=== PATIENT | female | born 1945 ===

== ENCOUNTER 2016-10-18 14:34 | Emergency (ER) | payer MEDICARE, MEDICAID ==
[2016-10-18 14:42] VITALS: BP 138/77; PULSE 90; RESP 20; TEMP 97.8; O2SAT 98
--- NOTE | 2016-10-18 15:18 | ED PDOC ---
HPI: CCC, URI, Sore Throat Time Seen by Provider: 10/18/16 15:00 Chief Complaint (Nursing): ENT Problem Chief Complaint (Provider): Ear Pain History Per: Patient, Family History/Exam Limitations: no limitations Have you had recent travel within the past 21 days to any of the following countries: [place], [place], [place] or [place]?: No Onset/Duration Of Symptoms: Days (x3 weeks) Current Symptoms Are (Timing): Still Present Location Of Pain: Ear(s) Associated Symptoms: Neck Pain (left side), Other (dizziness and ear pain (left) ). denies: Fever, Chills, Sinus Drainage Ear Symptoms: Left: Ear Pain, Decreased Hearing Severity: Moderate Additional Complaint(s): Dalila Bob is a 71 year old female, with a past medical history of cerebrovascular accidents, who presents to the emergency department with complaints of ear pain, that she has been experiencing for three weeks. Patient reportedly states a painful ringing sensation in her left ear for the past 3 days, inclusive of diminished hearing. Associated dizziness and left sided swelling of her neck are also present. Denies sinus drainage, fever, and chills. Patient has been taking Nasonex; however, it only provides mild relief. Of note, the patient did not take allergy pills prior to arrival due to a past medical history of asthma. Her PMD diagnosed her with an ear infection last week. PMD: Angel Luis Granger Past Medical History Reviewed: Historical Data, Nursing Documentation, Vital Signs Vital Signs: Last Vital Signs Temp 97.8 F 10/18/16 14:38 Pulse 90 10/18/16 14:38 Resp 20 10/18/16 14:38 BP 138/77 10/18/16 14:38 Pulse Ox 98 10/18/16 16:15 - Medical History PMH: Asthma, CVA - Family History Family History: States: No Known Family Hx - Home Medications Home Medications: Ambulatory Orders Medication Instructions Recorded Loratadine [Claritin] 10 mg PO DAILY #14 tab 10/18/16 - Allergies Allergies/Adverse Reactions: Allergies Allergy/AdvReac Type Severity Reaction Status Date / Time codeine Allergy SWELLING Verified 10/18/16 14:38 shellfish derived Allergy SHORTNESS Verified 10/18/16 14:38 OF BREATH Review of Systems ROS Statement: Except As Marked, All Systems Reviewed And Found Negative Constitutional: Negative for: Fever, Chills ENT: Positive for: Ear Pain (left tympanic membrane). Negative for: Ear Discharge, Nose Discharge Musculoskeletal: Positive for: Neck Pain (left sided pain inclusive of mild swelling) Skin: Negative for: Rash Neurological: Positive for: Dizziness. Negative for: Weakness, Numbness Physical Exam - Reviewed Nursing Documentation Reviewed: Yes Vital Signs Reviewed: Yes - Physical Exam Appears: Positive for: Non-toxic, No Acute Distress Head Exam: Positive for: ATRAUMATIC, NORMAL INSPECTION, NORMOCEPHALIC Skin: Positive for: Normal Color, Dry Eye Exam: Positive for: Normal appearance, PERRL ENT: Positive for: Normal ENT Inspection, TM Is/Are (left tm erythema, non- reflective to light), Hearing Is (decreased (left tm)). Negative for: Sinus Pain/Drainage Neck: Positive for: Normal, Painless ROM Respiratory: Negative for: Respiratory Distress Extremity: Positive for: Normal ROM. Negative for: Tenderness Neurologic/Psych: Positive for: Alert, Oriented. Negative for: Motor/Sensory Deficits - Laboratory Results Result Diagrams: 10/18/16 15:30 10/18/16 15:30 - ECG O2 Sat by Pulse Oximetry: 98 (RA) Pulse Ox Interpretation: Normal - Progress ED Course And Treament: HEAD CT: IMPRESSION: No evidence of acute intracranial hemorrhage intracranial collection mass effect or midline shift. No CT evidence of mastoiditis or otitis media. EKG: NSR 87BPM; NO ECTOPY NO ACUTE CHANGES Medical Decision Making Medical Decision Making: Initial Impression: possible sinus infection Initial Plan: * CT Head w/o Contrast * EKG * CBC * CMP * Troponin I * Reevaluation Scribe Attestation: Documented by Elieser Cash, training under Kimberley Hickey, acting as a scribe for Aysha MANN. Provider Scribe Attestation: All medical record entries made by the Scribe were at my direction and personally dictated by me. I have reviewed the chart and agree that the record accurately reflects my personal performance of the history, physical exam, medical decision making, and the department course for this patient. I have also personally directed, reviewed, and agree with the discharge instructions and disposition. Disposition - Clinical Impression Clinical Impression: Left ear pain - Patient ED Disposition Is Patient to be Admitted: No - Disposition Referrals: Tino Courtney MD [Staff Provider] - Disposition: Routine/Home Disposition Time: 16:29 Condition: FAIR Prescriptions: Loratadine [Claritin] 10 mg PO DAILY #14 tab Instructions: Earache (ED) Print Language: NORTHERN IRISH
[2016-10-18 15:48] LABS: BASO # 0.1 K/uL (0.0-0.2); EOS # 0.4 K/uL (0.0-0.7); EOS % 5.6 % (0.0-4.0); HEMATOCRIT 39.8 % (34.0-47.0); LYMPH # 1.9 K/uL (1.0-4.3); MEAN CELL VOLUME 88.3 fl (81.0-99.0); MEAN CORPUSCULAR HEMOGLOBIN 29.3 pg (27.0-31.0); MEAN CORPUSCULAR HGB CONC 33.2 g/dL (33.0-37.0); MEAN PLATELET VOLUME 8.8 fl (7.2-11.7); MONO # 0.6 K/uL (0.0-0.8); MONO % 8.8 % (0.0-10.0); NEUT # 3.6 K/uL (1.8-7.0); NEUT % 55.6 % (50.0-75.0); NRBC % 0.1 % (0.0-0.0); RED CELL DISTRIBUTION WIDTH 14.2 % (11.5-14.5); WHITE BLOOD COUNT 6.4 K/uL (4.8-10.8)
[2016-10-18 15:57] LABS: ALB/GLOB RATIO 1.1 (1.0-2.1); ALKALINE PHOSPHATASE 85 U/L (38-126); ALT/SGPT 44 U/L (9-52); AST/SGOT 34 U/L (14-36); BILIRUBIN,TOTAL 0.4 mg/dl (0.2-1.3); BLOOD UREA NITROGEN 16 mg/dl (7-17); CALCIUM 9.2 mg/dL (8.4-10.2); CARBON DIOXIDE 25 mmol/L (22-30); CHLORIDE 106 mmol/L (98-107); GFR AFRICAN-AMERICAN > 60; GLUCOSE,RANDOM 95 mg/dL (65-105); SODIUM 145 mmol/l (132-148); TOTAL PROTEIN 8.1 G/DL (6.3-8.2)
--- NOTE | 2016-10-18 16:23 | CT ---
PROCEDURE: CT HEAD WITHOUT CONTRAST. HISTORY: please evaluate left ear/sinus cavity COMPARISON: None available. TECHNIQUE: Axial computed tomography images were obtained through the head/brain without intravenous contrast. Radiation dose: Total exam DLP = 805.15 mGy-cm. This CT exam was performed using one or more of the following dose reduction techniques: Automated exposure control, adjustment of the mA and/or kV according to patient size, and/or use of iterative reconstruction technique. FINDINGS: HEMORRHAGE: No intracranial hemorrhage. BRAIN: No mass effect or edema. No atrophy or chronic microvascular ischemic changes. VENTRICLES: Unremarkable. No hydrocephalus. CALVARIUM: Unremarkable. PARANASAL SINUSES: Unremarkable as visualized. No significant inflammatory changes. MASTOID AIR CELLS: Unremarkable as visualized. No inflammatory changes. OTHER FINDINGS: None. IMPRESSION: No evidence of acute intracranial hemorrhage intracranial collection mass effect or midline shift. No CT evidence of mastoiditis or otitis media.
--- NOTE | 2016-10-18 19:32 | CARD ---
APPROVED REPORT EKG Measurement Heart [id number] <Conclusion> Normal sinus rhythm Low voltage QRS Borderline ECG
== END 2016-10-18 17:42 | disposition home or self-care (01) ==
LOC: H.ER 14:34
DX: H92.02 Otalgia, left ear (principal); M54.2 Cervicalgia; R42 Dizziness and giddiness; H91.90 Unspecified hearing loss, unspecified ear

== ENCOUNTER 2017-07-26 14:06 | Emergency (ER) | payer MEDICARE, MEDICAID ==
[2017-07-26 14:12] VITALS: TEMP 98.7; O2SAT 99
--- NOTE | 2017-07-26 14:46 | ED PDOC ---
HPI: CCC, URI, Sore Throat Time Seen by Provider: 07/26/17 14:18 Chief Complaint (Nursing): Flu-like Symptoms History Per: Patient History/Exam Limitations: no limitations Onset/Duration Of Symptoms: Days (7), Gradual, Worse Since (today) Current Symptoms Are (Timing): Still Present Location Of Pain: Throat, Diffuse Myalgias, Headache Sick Contacts (Context): None Associated Symptoms: Sore Throat, Cough, Sputum (yellow), Myalgias, Nasal Congestion. denies: Fever, Chills, Neck Pain, Sinus Drainage, Nausea, Vomiting , Diarrhea Ear Symptoms: Bilateral: None Severity: Moderate Additional History Per: Patient, Family Additional Complaint(s): To ED via BLS for evaluation of fever, body aches, cough x 1 week. Patient reports worsening symptoms today. no travel or sick contacts Past Medical History Reviewed: Historical Data, Nursing Documentation, Vital Signs Vital Signs: Last Vital Signs Temp 98.7 F 07/26/17 14:10 Pulse 121 H 07/26/17 14:10 Resp 16 07/26/17 14:10 BP 129/71 07/26/17 14:10 Pulse Ox 99 07/26/17 15:00 - Medical History PMH: Asthma, CVA - Family History Family History: States: Unknown Family Hx - Living Arrangements Living Arrangements: With Family - Social History Current smoker - smoking cessation education provided: No - Home Medications Home Medications: Ambulatory Orders Medication Instructions Recorded Loratadine [Claritin] 10 mg PO DAILY #14 tab 10/18/16 Prednisone [Deltasone] 20 mg PO DAILY #36 tablet 10/18/16 Albuterol HFA [Ventolin HFA 90 2 puff IH [id number] PRN #60 puff 07/26/17 mcg/actuation (8 g)] Azithromycin [Z-Isrrael] 250 mg PO ONCE #6 tab 07/26/17 Guaifenesin/Dextromethorphan 1 each PO TID PRN #30 tablet 07/26/17 [Tussin Dm 400-20 mg Tablet] Methylprednisolone [Medrol Dose 4 mg PO DAILY #21 mg 07/26/17 Pack (21 tabs)] - Allergies Allergies/Adverse Reactions: Allergies Allergy/AdvReac Type Severity Reaction Status Date / Time codeine Allergy SWELLING Verified 07/26/17 14:10 shellfish derived Allergy SHORTNESS Verified 07/26/17 14:10 OF BREATH Curb-65 Severity Score - CURB-65 Severity Score Confusion: No Bun >19mg/dl (>7mmol/L): No Respiratory Rate greater than/equal to 30: No Systolic BP <90 or Diastolic BP less than/equal 60mmHg: No Age >64: No Curb-65 Score: 0 Percentage 30-day mortality: 0.6% Review of Systems ROS Statement: Except As Marked, All Systems Reviewed And Found Negative Constitutional: Negative for: Fever, Chills Cardiovascular: Negative for: Chest Pain, Palpitations Respiratory: Positive for: Cough, Sputum. Negative for: Shortness of Breath, Pleuritic Pain Gastrointestinal: Negative for: Nausea, Vomiting, Abdominal Pain, Diarrhea Skin: Negative for: Rash Neurological: Positive for: Headache. Negative for: Weakness, Numbness, Confusion, Seizures, Altered Mental Status, Dizziness Physical Exam - Reviewed Nursing Documentation Reviewed: Yes Vital Signs Reviewed: Yes - Physical Exam Appears: Positive for: Uncomfortable Head Exam: Positive for: ATRAUMATIC, NORMAL INSPECTION, NORMOCEPHALIC Eye Exam: Positive for: Normal appearance, EOMI, PERRL Neck: Positive for: Normal, Painless ROM, Supple Cardiovascular/Chest: Positive for: Regular Rate, Rhythm, Chest Non Tender. Negative for: Edema, Gallop, Murmur, Bradycardia, Tachycardia Respiratory: Positive for: Wheezing (mild scattered). Negative for: Decreased Breath Sounds, Accessory Muscle Use, Crackles, Rales, Rhonchi, Stridor, Respiratory Distress Pulses-Radial (L): 2+ Pulses-Radial (R): 2+ Gastrointestinal/Abdominal: Positive for: Normal Exam, Bowel Sounds, Soft. Negative for: Tenderness Extremity: Positive for: Normal ROM. Negative for: Tenderness, Pedal Edema, Calf Tenderness, Deformity, Swelling Neurologic/Psych: Positive for: Alert, heating worker II-XII, Oriented. Negative for: Motor/Sensory Deficits, Mood/Affect, Aphasia, Facial Droop - Laboratory Results Result Diagrams: 07/26/17 14:55 07/26/17 14:50 - ECG ECG: Positive for: Interpreted By Me ECG Rhythm: Positive for: Normal QRS, Normal ST Segment, Sinus Tachycardia (104) . Negative for: ST/T Changes Interpretation Of Abn EKG: no evidence of ischemia O2 Sat by Pulse Oximetry: 99 Pulse Ox Interpretation: Normal - Radiology X-Ray: Interpreted by Ga X-Ray Interpretation: No Acute Disease - Progress ED Course And Treament: PROCEDURE: CT HEAD WITHOUT CONTRAST. HISTORY: Headache COMPARISON: None available. TECHNIQUE: Axial computed tomography images were obtained through the head/brain without intravenous contrast. Radiation dose: Total exam DLP = 851.13 MGy-cm. This CT exam was performed using one or more of the following dose reduction techniques: Automated exposure control, adjustment of the mA and/or kV according to patient size, and/or use of iterative reconstruction technique. FINDINGS: HEMORRHAGE: No intracranial hemorrhage. BRAIN: There is cystic encephalomalacia in the left posterior inferior cerebellar hemisphere. Aly-white matter differentiation is preserved. There is no mass, mass effect or abnormal extra-axial fluid collection. There are coarse atherosclerotic calcifications in the cavernous carotid arteries. VENTRICLES: There is mild age-related global parenchymal volume loss and proportionate enlargement of the ventricles and cortical sulci. CALVARIUM: The skull base and calvarium are normal. PARANASAL SINUSES: Predominantly clear. MASTOID AIR CELLS: Predominantly clear. OTHER FINDINGS: None. IMPRESSION: No acute intracranial abnormality. 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 advise albutero and steroids close pmd f/u ,pt leaves with family and agree's with plna and leaves in good spirits. Re-evaluation Time: 17:23 Condition: Improved Disposition - Clinical Impression Clinical Impression: URI (upper respiratory infection) - Patient ED Disposition Is Patient to be Admitted: No Counseled Patient/Family Regarding: Studies Performed, Diagnosis, Need For Followup, Rx Given - Disposition Referrals: [facility] [Outside] (2 to 3 days) Disposition: Routine/Home Disposition Time: 17:25 Condition: GOOD Prescriptions: Albuterol HFA [Ventolin HFA 90 mcg/actuation (8 g)] 2 puff IH [id number] PRN #60 puff PRN Reason: Cough Azithromycin [Z-Isrrael] 250 mg PO ONCE #6 tab Guaifenesin/Dextromethorphan [Tussin Dm 400-20 mg Tablet] 1 each PO TID PRN #30 tablet PRN Reason: Cough Methylprednisolone [Medrol Dose Pack (21 tabs)] 4 mg PO DAILY #21 mg Instructions: Acute Bronchitis (ED) Forms: [facility] (Romanian) Print Language: GHANAIAN
--- NOTE | 2017-07-26 14:58 | RAD ---
PROCEDURE: CHEST RADIOGRAPH, 1 VIEW HISTORY: fever COMPARISON: Chest radiograph dated 11/28/2009 FINDINGS: LUNGS: Clear. PLEURA: No pneumothorax or pleural fluid seen. CARDIOVASCULAR: Atherosclerotic aortic calcifications. Cardiomediastinal silhouette within normal limits OSSEOUS STRUCTURES: Unchanged. VISUALIZED UPPER ABDOMEN: Normal. OTHER FINDINGS: None. IMPRESSION: No active disease.
[2017-07-26] MEDS: Sodium Chloride 0.9% 1,000 ML IV ONE (14:59)
[2017-07-26 15:04] LABS: BASO # 0.1 K/uL (0.0-0.2); BASO % 0.7 % (0.0-2.0); EOS # 0.2 K/uL (0.0-0.7); EOS % 1.6 % (0.0-4.0); HEMOGLOBIN 12.9 g/dL (12.0-16.0); LYMPH # 1.7 K/uL (1.0-4.3); LYMPH % 18.1 % (20.0-40.0); MEAN CELL VOLUME 88.1 fl (81.0-99.0); MEAN CORPUSCULAR HEMOGLOBIN 28.9 pg (27.0-31.0); MEAN CORPUSCULAR HGB CONC 32.8 g/dL (33.0-37.0); MEAN PLATELET VOLUME 8.7 fl (7.2-11.7); MONO # 0.9 K/uL (0.0-0.8); MONO % 9.5 % (0.0-10.0); NEUT # 6.7 K/uL (1.8-7.0); NEUT % 70.1 % (50.0-75.0); NRBC % 0.1 % (0.0-0.0); RBC 4.46 Mil/uL (3.80-5.20); RED CELL DISTRIBUTION WIDTH 13.4 % (11.5-14.5); WHITE BLOOD COUNT 9.5 K/uL (4.8-10.8)
[2017-07-26 15:18] LABS: INR 1.2 (0.9-1.2); PARTIAL THROMBOPLASTIN TIME 30.6 Seconds (25.6-37.1); PROTHROMBIN TIME 13.5 Seconds (9.8-13.1)
[2017-07-26 15:20] LABS: ALB/GLOB RATIO 1.1 (1.0-2.1); ALBUMIN 4.2 g/dL (3.5-5.0); AST/SGOT 22 U/L (14-36); BLOOD UREA NITROGEN 11 mg/dl (7-17); CALCIUM 9.8 mg/dL (8.4-10.2); GFR AFRICAN-AMERICAN > 60; GFR NON-AFRICAN AMERICAN > 60
[2017-07-26 15:21] LABS: ALT/SGPT 30 U/L (9-52); LIPASE 58 U/L (23-300)
--- NOTE | 2017-07-26 17:11 | CT ---
PROCEDURE: CT HEAD WITHOUT CONTRAST. HISTORY: Headache COMPARISON: None available. TECHNIQUE: Axial computed tomography images were obtained through the head/brain without intravenous contrast. Radiation dose: Total exam DLP = 851.13 MGy-cm. This CT exam was performed using one or more of the following dose reduction techniques: Automated exposure control, adjustment of the mA and/or kV according to patient size, and/or use of iterative reconstruction technique. FINDINGS: HEMORRHAGE: No intracranial hemorrhage. BRAIN: There is cystic encephalomalacia in the left posterior inferior cerebellar hemisphere. Aly-white matter differentiation is preserved. There is no mass, mass effect or abnormal extra-axial fluid collection. There are coarse atherosclerotic calcifications in the cavernous carotid arteries. VENTRICLES: There is mild age-related global parenchymal volume loss and proportionate enlargement of the ventricles and cortical sulci. CALVARIUM: The skull base and calvarium are normal. PARANASAL SINUSES: Predominantly clear. MASTOID AIR CELLS: Predominantly clear. OTHER FINDINGS: None. IMPRESSION: No acute intracranial abnormality. 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
[2017-07-26 18:07] VITALS: BP 125/83; PULSE 96; RESP 18
--- NOTE | 2017-07-27 11:04 | CARD ---
APPROVED REPORT EKG Measurement Heart [id number] HI [id number] [id number] <Conclusion> Sinus tachycardia Otherwise normal ECG
== END 2017-07-26 18:00 | disposition home or self-care (01) ==
LOC: H.ER 14:06
DX: J06.9 Acute upper respiratory infection, unspecified (principal); Z86.73 Personal history of transient ischemic attack (TIA), and cerebral infarction without residual deficits
CPT/HCPCS: 70450; 71045; 80053; 83605; 83690; 83735; 84484; 85025; 85610; 85730; 87804; 93005; 96361; 96374; 99283; J2930; J7040

== ENCOUNTER 2018-11-27 13:43 | Emergency (ER) | payer MEDICARE, MEDICAID ==
[2018-11-27 13:48] VITALS: BP 147/85; RESP 16; TEMP 98.3
--- NOTE | 2018-11-27 15:11 | ED PDOC ---
Lower Extremity Pain/Injury Time Seen by Provider: 11/27/18 13:53 Chief Complaint (Nursing): Lower Extremity Problem/Injury Chief Complaint (Provider): Lower Extremity Problem/Injury History Per: Patient History/Exam Limitations: no limitations Onset/Duration Of Symptoms: Hrs (20x) Current Symptoms Are (Timing): Still Present Severity: Moderate Additional Complaint(s): 73 year old female with no pertinent past medical history presents to the ED for an evaluation of left knee pain that started 20x hours prior to arrival. Patient states that she was getting into her tub, stepping in with her right leg first because her left knee was bothering her. When she lifted her left leg and bent her knee, she felt a pop and states that she has been unable to bear her full weight on her leg since then and is unable to bend it completely. Patient states that the pain radiates to her thigh. Patient states that she now needs assistance from her daughter when getting on and off of the toilet. Patient denies having a complete fall. Patient daughter reports giving the patient ibuprofen and tylenol 20x hours prior to arrival with no improvement. PMD: Angel Luis Granger MD Past Medical History Reviewed: Historical Data, Nursing Documentation, Vital Signs Vital Signs: Last Vital Signs Temp 98.3 F 11/27/18 13:46 Pulse 101 H 11/27/18 13:46 Resp 16 11/27/18 13:46 BP 147/85 11/27/18 13:46 Pulse Ox 97 11/27/18 13:46 MARIA R Report Viewed: Yes Primary Care Provider: Angel Luis Granger - Medical History PMH: Asthma, CVA, HTN - Surgical History Surgical History: Cholecystectomy - Family History Family History: States: No Known Family Hx - Social History Current smoker - smoking cessation education provided: No Alcohol: None Drugs: Denies - Home Medications Home Medications: Ambulatory Orders Medication Instructions Recorded Loratadine [Claritin] 10 mg PO DAILY #14 tab 10/18/16 Prednisone [Deltasone] 20 mg PO DAILY #36 tablet 10/18/16 Albuterol HFA [Ventolin HFA 90 2 puff IH [id number] PRN #60 puff 07/26/17 mcg/actuation (8 g)] Azithromycin [Z-Isrrael] 250 mg PO ONCE #6 tab 07/26/17 Guaifenesin/Dextromethorphan 1 each PO TID PRN #30 tablet 07/26/17 [Tussin Dm 400-20 mg Tablet] Methylprednisolone [Medrol Dose 4 mg PO DAILY #21 mg 07/26/17 Pack (21 tabs)] Naproxen 500 mg PO Q12H PRN #30 tab 11/27/18 - Allergies Allergies/Adverse Reactions: Allergies Allergy/AdvReac Type Severity Reaction Status Date / Time codeine Allergy SWELLING Verified 11/27/18 13:45 shellfish derived Allergy SHORTNESS Verified 11/27/18 13:45 OF BREATH Review of Systems ROS Statement: Except As Marked, All Systems Reviewed And Found Negative Musculoskeletal: Positive for: Other (left knee pain radiates to her thigh) Physical Exam - Reviewed Nursing Documentation Reviewed: Yes Vital Signs Reviewed: Yes - Physical Exam Appears: Positive for: Well, Non-toxic, No Acute Distress Head Exam: Positive for: ATRAUMATIC, NORMOCEPHALIC Skin: Positive for: Normal Color, Warm, Dry Pulses-Dorsalis Pedis (L): 2+ Pulses-Dorsalis Pedis (R): 2+ Extremity: Positive for: Other (left lower extremity: slight swelling to left knee when compared to right knee. (-) redness. Skin intact. (-) deformity. Decreased ROM of left knee due to pain. (+) pain to knee when moving lower aspect of leg to the left and right side. Patient states "the pain is inside" upon exam. Popliteal pulses 2+. Color and temperature within normal limits.) Neurological/Psych: Positive for: Awake, Alert, Oriented (3x) - ECG O2 Sat by Pulse Oximetry: 97 (RA) Pulse Ox Interpretation: Normal Medical Decision Making Medical Decision Makin:53 Initial impression: 73 year old female with left knee pain Initial plan: Discussed case with for recommendation of imaging. recommending to start with an Xray. * XRay knee left 3 views * toradol 30 mg IM * reevaluation 14:43 XRay knee read and reviewed by radiologist FINDINGS: BONES: Normal. No fracture. JOINTS: Normal. No osteoarthritis. JOINT EFFUSION: None. OTHER FINDINGS: None. IMPRESSION: No significant or acute findings to account for/ related to the clinical presentation. 16:16 Patient placed in knee immobilizer and given crutches for walking assistance. Upon provider reevaluation patient is feeling better, is medically stable, and requires no further treatment in the ED at this time. Patient will be discharged home with Rx for naproxen. Counseling was provided and all questions were answered regarding diagnosis and need for follow up with orthopedist. There is agreement to discharge plan. Return if symptoms persist or worsen. ScribeAttestation: Documented byJen Soni, acting as a scribe for Tara Freemaneno [employer]AK [employer]PER[employer]. Provider ScribeAttestation: All medical record entries made by the Scribe were at my direction and personally dictated by me. I have reviewed the chart and agree that the record accurately reflects my personal performance of the history, physical exam, medical decision making, and the department course for this patient. I have also personally directed, reviewed, and agree with the discharge instructions and disposition. Disposition - Clinical Impression Clinical Impression: Knee injury - Patient ED Disposition Is Patient to be Admitted: No Counseled Patient/Family Regarding: Diagnosis, Need For Followup, Rx Given - Disposition Referrals: Evan Kent MD [Medical Doctor] - Disposition: Routine/Home Disposition Time: 16:16 Condition: GOOD Prescriptions: Naproxen 500 mg PO Q12H PRN #30 tab PRN Reason: Pain, Moderate (4-7) Instructions: Knee Sprain (DC), Active Range of Motion Exercises, Knees and Ankles Forms: [employer] (Lithuanian) Print Language: TUNISIAN - POA Present On Arrival: None
--- NOTE | 2018-11-27 16:08 | RAD ---
Date of service: 11/27/2018 PROCEDURE: Left Knee Radiographs. HISTORY: Posttraumatic left knee pain. COMPARISON: None. TECHNIQUE: 2 views obtained. FINDINGS: BONES: Normal. No fracture. JOINTS: Normal. No osteoarthritis. JOINT EFFUSION: None. OTHER FINDINGS: None. IMPRESSION: No significant or acute findings to account for/ related to the clinical presentation.
[2018-11-27 17:11] VITALS: PULSE 86; O2SAT 98
== END 2018-11-27 16:17 | disposition home or self-care (01) ==
LOC: H.ER 13:43
DX: M25.562 Pain in left knee (principal)
CPT/HCPCS: 73562; 96372; 99284; J1885